=== PATIENT | female | born 1980 | race Caucasian/White ===

== ENCOUNTER 2019-05-01 15:32 | Emergency (ER) | payer MEDICAID ==
[~2019-05-01] VITALS: Ht 172.7 cm; Wt 11.1 kg
[2019-05-01 15:46] VITALS: BP 159/112
[2019-05-01] MEDS ORDERED: CLIN150C2 PO (16:09)
== END 2019-05-01 16:18 | disposition home or self-care (01) ==
LOC: ER 15:32
DX: S02.5XXA Fracture of tooth (traumatic), initial encounter for closed fracture (principal); Z79.2 Long term (current) use of antibiotics; Z79.899 Other long term (current) drug therapy; X58.XXXA Exposure to other specified factors, initial encounter; Y93.89 Activity, other specified; Y92.89 Other specified places as the place of occurrence of the external cause; Y99.8 Other external cause status
CPT/HCPCS: 99283